=== PATIENT | male | born 1940 | race Caucasian/White ===

== ENCOUNTER → 2020-10-29 | Outpatient (CLI) | payer MEDICARE, BC ==
--- NOTE | 2020-10-29 08:56 | RAD ---
EXAM: RIGHT UPPER QUADRANT ULTRASOUND. HISTORY: Right upper quadrant pain. COMPARISON: None. FINDINGS: Sonographic evaluation of the right upper quadrant was performed. Hyperechogenicity of the hepatic parenchyma is consistent with diffuse hepatic steatosis. There are n o focal lesions. The gallbladder is unremarkable without evidence of stones, wall thickening or pericholecystic fluid. There is no sonographic Maciel sign. The common duct measures 2 mm. The visualized portions of the head of the pancreas reveal no abnormality. The right kidney measures 10.8 cm. There is some right renal cortical thinning. Cortical echogenicity appears preserved. The renal calyces appear dilated on some images. The renal pelvis is not well vis ualized. A benign cyst arising from the interpolar region measures 2.2 x 2.3 cm. The visualized portions of the abdominal aorta and inferior vena cava are grossly patent and normal i n caliber. A right pleural effusion is noted. IMPRESSION: 1. Mild right hydronephrosis versus peripelvic cysts. Mild right renal atrophy is suspected. CT is sy ggested to exclude hydronephrosis if the diagnosis is not already known. 2. Diffuse hepatic steatosis. 3. Right pleural effusion. Electronically signed by: Boo Rahman MD (10/29/2020 8:53 AM) [facility]
== END ==
LOC: US 07:42
PROVIDERS: ATTEND Family Medicine
DX: K76.0 Fatty (change of) liver, not elsewhere classified (principal); J90 Pleural effusion, not elsewhere classified
CPT/HCPCS: 76705

== ENCOUNTER → 2020-11-04 | Outpatient (CLI) | payer MEDICARE, BC ==
--- NOTE | 2020-11-04 09:04 | RAD ---
EXAM: CT Abdomen and Pelvis without IV contrast CLINICAL HISTORY: RIGHT SIDED PAIN/HYDRONEPHROSIS COMPARISON: none TECHNIQUE: Helical CT of the abdomen and pelvis without intravenous contrast. Axial, coronal and sagi ttal reformatted images were generated. PQRS compliance statement - One or more of the following individualized dose reduction techniques wer e utilized for this study: 1. Automated exposure control 2. Adjustment of the mA and/or kV according to patient size 3. Use of iterative reconstruction technique FINDINGS: Lack of intravenous contrast limits evaluation of solid organs, vasculature, and lymph nodes. Lower chest: Linear and bandlike opacities right lower lobe likely scarring/atelectasis. Small right pleural effus ion. Bilateral interstitial prominence.. Abdomen and Pelvis: Liver, spleen, adrenal glands and pancreas are unremarkable. Gallbladder is normal. No biliary ductal dilatation. Multiple bilateral renal cysts are seen including a left upper pole renal cyst with calcified septati ons measuring 5.5 cm. Moderate right hydronephrosis and hydroureter to the level of the bladder with associated bladder wall thickening is seen. No renal tract calculus. Penile implant is partially prof iled. Fat-containing inguinal hernias. Vascular calcifications are seen. Aorta is normal in caliber. Moderate colonic stool content is seen. Colonic diverticulosis without CT evidence for acute divertic ulitis. Changes of ileocolonic anastomosis are seen. No abdominal or pelvic ascites. No abdominal or pelvic lymphadenopathy. Trace periumbilical hernia. Bones: Hip joint degenerative changes are seen. Degenerative changes of the spine are noted. No aggressive o sseous lesion. IMPRESSION: 1. Moderate right hydronephrosis and hydroureter to the level of the bladder with associated thicken ing at the ureterovesicular junction, underlying mass or fibrosis may result in this appearance. Nikhil mmend further evaluation with cystoscopy. 2. No abdominal or pelvic lymphadenopathy. 3. Complex appearing left renal cyst with calcified septations, further evaluation with MRI can be p erformed. Electronically signed by: Pool Brasher MD (11/04/2020 9:01 AM) [facility]
== END ==
LOC: CT 08:29
PROVIDERS: ATTEND Family Medicine
DX: K57.30 Diverticulosis of large intestine without perforation or abscess without bleeding (principal); K40.90 Unilateral inguinal hernia, without obstruction or gangrene, not specified as recurrent; J90 Pleural effusion, not elsewhere classified; N28.1 Cyst of kidney, acquired; N13.30 Unspecified hydronephrosis; N13.4 Hydroureter
CPT/HCPCS: 74176

== ENCOUNTER → 2021-02-19 | Outpatient (CLI) | payer MEDICARE, BC ==
--- NOTE | 2021-02-20 08:38 | RAD ---
INDICATION: Reason: HYDRONEPHROSIS / Spl. Instructions: / History: COMPARISON: CT from November 04, 2020 TECHNIQUE: Grayscale and color ultrasound images obtained of the bilateral kidneys and bladder. FINDINGS: Right Kidney: 95 mm. Left Kidney: 117 mm. Mild right-sided hydronephrosis. Lateral to the urinary bladder there is a 39 x 39 x 36 mm cystic structure. This likely is secondary to the patient's implanted reservoir on CT. Bilateral renal cystic lesions measuring up to 5 cm on the left and 2.4 cm on right. Bladder: Prevoid 342 cc. Coarsened hepatic echotexture. IMPRESSION: * Mild right-sided hydronephrosis. * Bilateral renal cystic lesions are seen on this exam as well including the complex lesion on the l eft with some echogenic material within. Further workup option includes obtaining a follow-up examina tion in 6-12 months to ensure no growth or if further information is needed at this time renal protoc ol MRI could further assess for solid component. Electronically signed by: Eben Murillo MD (02/20/2021 8:36 AM) [id number]
== END ==
LOC: US 09:32
PROVIDERS: ATTEND Specialist
DX: N13.1 Hydronephrosis with ureteral stricture, not elsewhere classified (principal); N28.1 Cyst of kidney, acquired
CPT/HCPCS: 76770

== ENCOUNTER → 2021-02-25 | Outpatient (CLI) | payer MEDICARE, BC ==
[~2021-02-25] MED LIST: FUROSEMIDE 40 MG/4 ML VIAL IVP ONE
--- NOTE | 2021-02-25 16:34 | RAD ---
EXAM: RENAL SCINTIGRAPHY. HISTORY: Hydronephrosis, obstruction. COMPARISON: 02/19/2021, 11/06/2020. FINDINGS: 5.5 mCi technetium-99m MAG3 were administered intravenously. Scintigraphic images of the ki dneys were obtained in angiographic, uptake and excretory phases. 40 mg Lasix were administered intra venously 20 minutes after MAG3 and additional excretory images were obtained for an additional 20 min utes. Split function and excretory curves were calculated. Angiographic images demonstrate prompt, symmetric renal perfusion. Uptake images demonstrate symmetri c renal function. A defect at the lateral aspect of the left renal upper pole corresponds with a larg e cyst on anatomic imaging. Contrast is seen within both ureters and bladder. The left renal collecti ng system and ureter remain somewhat dilated. Split function: 43.5% right; 56.5% left. On the left, excretory halftime is normal at approximately 9 minutes (normal <10 minutes). On the rig ht, clearance of half of the activity is not achieved through 40 minutes, consistent with significant obstruction (half-time of clearance >20 minutes). IMPRESSION: 1. Split function: 43.5% right; 56.5% left. 2. Findings consistent with significant obstruction on the right. This appears to be at the level of the ureterovesical junction on prior CT. Free reflux at the right ureterovesical junction is an alter [place] explanation of these findings. Electronically signed by: Boo Rahman MD (02/25/2021 4:32 PM) [facility]
== END ==
LOC: NM 09:24
PROVIDERS: ATTEND Family Medicine
DX: N28.1 Cyst of kidney, acquired (principal); N13.39 Other hydronephrosis
CPT/HCPCS: 78708; A9562; J1940; 96374; 96375

== ENCOUNTER → 2021-04-10 | Outpatient (CLI) | payer MEDICARE, BC ==
--- NOTE | 2021-04-10 12:35 | RAD ---
RENAL SCINTIGRAPHY WITH FUROSEMIDE Clinical Indication: Reason: POST STENT PLACEMENT. History of prostate cancer. Comparison: Renal scintigraphy February 25, 2021. CT abdomen and pelvis without contrast November 04, 2020. Technique: The patient received 5.3 mCi of technetium 99m MAG3 intravenously. Posterior dynamic imagi ng of the kidneys was performed. There is a one minute angiographic phase followed by one minute fram es for a total of 40 minutes. At the 23 minute barbara, the patient was injected with 40 mg of furosemid e intravenously. Findings: There is normal blood flow to the kidneys. The time to maximum of the right and left kidney is normal , both are 4 minutes. The right kidney clearance curve is improved from the prior study. The time fro m max to half max of the left kidney is upper limits of normal measuring 10.5 minutes. The right kidn ey time from max to half max is 21.1 minutes. This is considered abnormal but is significantly improv ed from the prior study. Finding could be due to persistent partial obstruction or blunted renal func tion due to recent high-grade obstruction. Initial cortical uptake of the kidneys is symmetric. Photo penia at the upper pole the left kidney is due to a large cyst. Clearance from the right kidney is im proved from the prior study. Tracer is seen in the right ureter throughout a majority of the study. A s before, this suggests the rate limiting step of emptying is at the ureterovesicular junction. Both kidneys respond to Lasix but a significant amount of clearance has already occurred at the time of La six administration. The split function is 47.4% left kidney and 52.6% right kidney. IMPRESSION: 1. Obstructive findings of the right kidney are improved from the prior study. 2. Split function is normal: 47.4% left kidney and 52.6% right kidney. Electronically signed by: Maximus Claudio MD (04/10/2021 12:32 PM) [id number]
== END ==
LOC: NM 08:29
PROVIDERS: ATTEND Specialist
DX: N28.1 Cyst of kidney, acquired (principal); N13.1 Hydronephrosis with ureteral stricture, not elsewhere classified
CPT/HCPCS: 78708; A9562; J1940